=== PATIENT | female | born 1935 | race Caucasian/White ===

== ENCOUNTER 2016-12-22 07:21 | Inpatient (IN) | payer MEDICARE ==
[2016-12-22 08:43] LABS: Hematocrit 35.6 % (30.3-42.9); Hemoglobin 11.6 gm/dl (10.1-14.3); Mean Corpuscular HGB Conc 33 % (30-34); Mean Corpuscular Hemoglobin 30 pg (28-32); Mean Corpuscular Volume 93 fl (79-97); Platelet Count 232 K/mm3 (140-440); Red Blood Count 3.84 M/mm3 (3.65-5.03); Red Cell Distribution Width 14.1 % (13.2-15.2); White Blood Count 6.7 K/mm3 (4.5-11.0)
[2016-12-22 08:52] LABS: Anion Gap 16 mmol/L; Blood Urea Nitrogen 27 mg/dL (7-17); Calcium 8.8 mg/dL (8.4-10.2); Carbon Dioxide 28 mmol/L (22-30); Chloride 103.3 mmol/L (98-107); Glucose 86 mg/dL (65-100); Sodium 143 mmol/L (137-145)
[2016-12-22 08:54] LABS: Bilirubin,Urine NEG (Negative); Blood,Urine NEG (Negative); Ketones,Urine TR mg/dL (Negative); Leukocyte Esterase,Urine SM (Negative); Mucus,Urine 1+ /HPF; Nitrite,Urine NEG (Negative)
--- NOTE | 2016-12-22 09:48 | XRay Report ---
Single view chest: History altered mental status. Findings: Megaly. Trachea is midline. No consolidation, pneumothorax or pleural effusion. Impression: No acute cardiopulmonary findings.
[2016-12-22 10:53] LABS: Partial Thromboplastin Time 25.2 Sec. (24.2-36.6)
--- NOTE | 2016-12-22 10:58 | Cat Scan Report ---
CT scan of head without contrast: History: AMS. Findings: Ventricles are normal in size and midline in location. No evidence of acute ischemia, hemorrhage or mass. No extra-axial fluid collection. Mild to moderate volume loss. Normal sinuses. Impression: No acute intracranial abnormality. Mild cortical atrophy.
[2016-12-22 10:59] LABS: INR 1.06 (0.87-1.13)
[2016-12-22] MEDS ORDERED: NACL 0.9% 1000 ML 1,000 ML IV ONE (11:25)
[2016-12-22] MEDS ORDERED: ROCEPHIN/NS 1 GM/50 ML 1 GM/50 ML BAG IV ONE (11:25)
[2016-12-22] MEDS ORDERED: KEPPRA 1,000 MG/NS 0.75% 100ML 1,000 MG/100 ML BAG IV ONE (11:47)
[2016-12-22 11:49] LABS: Basophils % (Manual) 0 % (0.0-1.8); Blastocytes % (Manual) 0 %; Eosinophils % (Manual) 0 % (0.0-4.3)
[2016-12-22 11:50] LABS: Diff Status Complete; Poikilocytosis Few
--- NOTE | 2016-12-22 12:01 | Emergency Department Report ---
ED Altered Mental Status HPI - General Chief Complaint: Altered Mental Status Stated Complaint: AMS Time Seen by Provider: 12/22/16 09:41 Source: EMS Mode of arrival: Stretcher Limitations: Altered Mental Status - History of Present Illness Initial Comments: 81 year old female past medical history dementia, PE, sz presents from assisted living center with altered mental status. Per EMS pt has been more confused and not speaking much which is changed from her baseline. Patient is oriented to self only. Patient does not speak when questioned and follows very basic commands. She does not appear to be in distress. Kit Planner at the bedside states patient has been eating and drinking. Noticed decrease in activity and speaking today. Temperature 101 at home. Nor reports of cough or cold symptoms - Related Data Home Medications Medication Instructions Recorded Confirmed Last Taken Acetaminophen 500 mg PO PRN PRN 12/22/16 12/22/16 Unknown Aspirin 81 mg PO QAM 12/22/16 12/22/16 1 Day Ago AtorvaSTATin 40 mg PO QHS 12/22/16 12/22/16 1 Day Ago Valproic Acid 250 mg PO BID 12/22/16 12/22/16 1 Day Ago levETIRAcetam 1,000 mg PO BID 12/22/16 12/22/16 1 Day Ago risperiDONE 1 mg PO BID 12/22/16 12/22/16 1 Day Ago traZODone 100 mg PO QHS 12/22/16 12/22/16 1 Day Ago Allergies Allergy/AdvReac Type Severity Reaction Status Date / Time No Known Allergies Allergy Unverified 12/22/16 07:46 ED Review of Systems ROS: Stated complaint: AMS Other details as noted in HPI Comment: Unobtainable due to pts medical conditions ED Past Medical Hx - Past Medical History Previous Medical History?: Yes Hx Pulmonary Embolism: Yes Hx Seizures: Yes Hx Dementia: Yes - Social History Smoking Status: Unknown if ever smoked - Medications Home Medications: Home Medications Medication Instructions Recorded Confirmed Last Taken Type Acetaminophen 500 mg PO PRN PRN 12/22/16 12/22/16 Unknown History Aspirin 81 mg PO QAM 12/22/16 12/22/16 1 Day Ago History AtorvaSTATin 40 mg PO QHS 12/22/16 12/22/16 1 Day Ago History Valproic Acid 250 mg PO BID 12/22/16 12/22/16 1 Day Ago History levETIRAcetam 1,000 mg PO BID 12/22/16 12/22/16 1 Day Ago History risperiDONE 1 mg PO BID 12/22/16 12/22/16 1 Day Ago History traZODone 100 mg PO QHS 12/22/16 12/22/16 1 Day Ago History ED Physical Exam - General Limitations: Altered Mental Status - Other Other exam information: General: No limitations, patient is alert in no acute distress Head exam: Atraumatic, normocephalic Eyes exam: Normal appearance, pupils equal and react to light ENT: Moist mucous membrane, normal oropharynx Neck exam: Normal inspection Respiratory exam: Clear to auscultation bilateral, no wheezes, rales, crackles Cardiovascular: Normal rate and rhythm, normal heart sounds Abdomen: Soft, nondistended, and nontender, with normal bowel sounds, no rebound, or guarding Extremity: Full range of motion normal inspection no deformity Back: Normal Inspection, full range of motion, no tenderness Neurologic: Alert, no facial droop, equal hand pocket assembler, equal foot dorsiflexion Psychiatric: normal affect, normal mood Skin: Warm, dry, intact ED Course Vital Signs 12/22/16 12/22/16 07:39 10:38 Temperature 98.7 F 98.6 F Pulse Rate 54 L 50 L Respiratory 16 14 Rate Blood Pressure 126/67 Blood Pressure 106/58 [Right] O2 Sat by Pulse 100 100 Oximetry - Reevaluation(s) Reevaluation #1: 12/22/16 12:01 pt state unchanged Reevaluation #2: 12/22/16 12:34 will repeat ekg to r/o artifact vs true aflutter. - Lab Data Result diagrams: 12/22/16 08:23 12/22/16 08:28 Lab Results 12/22/16 12/22/16 12/22/16 Range/Units 08:23 08:23 08:23 WBC 6.7 (4.5-11.0) K/mm3 RBC 3.84 (3.65-5.03) M/mm3 Hgb 11.6 (10.1-14.3) gm/dl Hct 35.6 (30.3-42.9) % MCV 93 (79-97) fl MCH 30 (28-32) pg MCHC 33 (30-34) % RDW 14.1 (13.2-15.2) % Plt Count 232 (140-440) K/mm3 [place] % (Auto) Security Services Specialist Add Manual Diff Complete Total Counted 100 Seg Neuts % (Manual) 71.0 H (40.0-70.0) % Band Neutrophils % 3.0 % Lymphocytes % (Manual) 14.0 (13.4-35.0) % Reactive Lymphs % (Man) 0 % Monocytes % (Manual) 12.0 H (0.0-7.3) % Eosinophils % (Manual) 0 (0.0-4.3) % Basophils % (Manual) 0 (0.0-1.8) % Metamyelocytes % 0 % Myelocytes % 0 % Promyelocytes % 0 % Blast Cells % 0 % Nucleated RBC % Not Reportable Seg Neutrophils # Man 4.8 (1.8-7.7) K/mm3 Band Neutrophils # 0.2 K/mm3 Lymphocytes # (Manual) 0.9 L (1.2-5.4) K/mm3 Abs React Lymphs (Man) 0.0 K/mm3 Monocytes # (Manual) 0.8 (0.0-0.8) K/mm3 Eosinophils # (Manual) 0.0 (0.0-0.4) K/mm3 Basophils # (Manual) 0.0 (0.0-0.1) K/mm3 Metamyelocytes # 0.0 K/mm3 Myelocytes # 0.0 K/mm3 Promyelocytes # 0.0 K/mm3 Blast Cells # 0.0 K/mm3 WBC Morphology Not Reportable Hypersegmented Neuts Not Reportable Hyposegmented Neuts Not Reportable Hypogranular Neuts Not Reportable Smudge Cells Not Reportable Toxic Granulation Not Reportable Toxic Vacuolation Not Reportable Dohle Bodies Not Reportable Pelger-Huet Anomaly Not Reportable Jude Rods Not Reportable Platelet Estimate Not Reportable Clumped Platelets Not Reportable Plt Clumps, EDTA Not Reportable Large Platelets Not Reportable Giant Platelets Not Reportable Platelet Satelliting Not Reportable Plt Morphology Comment Not Reportable RBC Morphology Not Reportable Dimorphic RBCs Not Reportable Polychromasia Not Reportable Hypochromasia Not Reportable Poikilocytosis Few Anisocytosis Not Reportable Microcytosis Not Reportable Macrocytosis Not Reportable Spherocytes Not Reportable Pappenheimer Bodies Not Reportable Sickle Cells Not Reportable Target Cells Not Reportable Tear Drop Cells Not Reportable Ovalocytes Not Reportable Helmet Cells Not Reportable [place] Bodies Not Reportable Mullin Rings Not Reportable [place] Cells Not Reportable Bite Cells Not Reportable Crenated Cell Not Reportable Elliptocytes Not Reportable Acanthocytes (Spur) Not Reportable Rouleaux Not Reportable Hemoglobin C Crystals Not Reportable Schistocytes Not Reportable Malaria parasites Not Reportable Gold Bodies Not Reportable Hem Pathologist Commnt No PT (12.2-14.9) Sec. INR (0.87-1.13) APTT (24.2-36.6) Sec. Sodium (137-145) mmol/L Potassium (3.6-5.0) mmol/L Chloride (98-107) mmol/L Carbon Dioxide (22-30) mmol/L Anion Gap mmol/L BUN (7-17) mg/dL Creatinine (0.7-1.2) mg/dL Estimated GFR ml/min BUN/Creatinine Ratio % Glucose (65-100) mg/dL Lactic Acid (0.7-2.0) mmol/L Calcium (8.4-10.2) mg/dL Troponin T < 0.010 (0.00-0.029) ng/mL TSH (0.270-4.200) mlU/mL Free T4 (0.76-1.46) ng/dL Urine Color Yellow (Yellow) Urine Turbidity Clear (Clear) Urine pH 6.0 (5.0-7.0) Ur Specific [place] 1.031 H (1.003-1.030) Urine Protein 100 mg/dl (Negative) mg/dL Urine Glucose (UA) Neg (Negative) mg/dL Urine Ketones Tr (Negative) mg/dL Urine Blood Neg (Negative) Urine Nitrite Neg (Negative) Urine Bilirubin Neg (Negative) Urine Urobilinogen 4.0 (<2.0) mg/dL Ur Leukocyte Esterase Sm (Negative) Urine WBC (Auto) 12.0 H (0.0-6.0) /HPF Urine RBC (Auto) 11.0 (0.0-6.0) /HPF U Epithel Cells (Auto) 1.0 (0-13.0) /HPF Hyaline Casts 1 /LPF Urine Mucus 1+ /HPF Urine Yeast (Budding) Few /HPF 12/22/16 12/22/16 12/22/16 Range/Units 08:28 08:28 10:25 WBC (4.5-11.0) K/mm3 RBC (3.65-5.03) M/mm3 Hgb (10.1-14.3) gm/dl Hct (30.3-42.9) % MCV (79-97) fl MCH (28-32) pg MCHC (30-34) % RDW (13.2-15.2) % Plt Count (140-440) K/mm3 [place] % (Auto) Add Manual Diff Total Counted Seg Neuts % (Manual) (40.0-70.0) % Band Neutrophils % % Lymphocytes % (Manual) (13.4-35.0) % Reactive Lymphs % (Man) % Monocytes % (Manual) (0.0-7.3) % Eosinophils % (Manual) (0.0-4.3) % Basophils % (Manual) (0.0-1.8) % Metamyelocytes % % Myelocytes % % Promyelocytes % % Blast Cells % % Nucleated RBC % Seg Neutrophils # Man (1.8-7.7) K/mm3 Band Neutrophils # K/mm3 Lymphocytes # (Manual) (1.2-5.4) K/mm3 Abs React Lymphs (Man) K/mm3 Monocytes # (Manual) (0.0-0.8) K/mm3 Eosinophils # (Manual) (0.0-0.4) K/mm3 Basophils # (Manual) (0.0-0.1) K/mm3 Metamyelocytes # K/mm3 Myelocytes # K/mm3 Promyelocytes # K/mm3 Blast Cells # K/mm3 WBC Morphology Hypersegmented Neuts Hyposegmented Neuts Hypogranular Neuts Smudge Cells Toxic Granulation Toxic Vacuolation Dohle Bodies Pelger-Huet Anomaly Jude Rods Platelet Estimate Clumped Platelets Plt Clumps, EDTA Large Platelets Giant Platelets Platelet Satelliting Plt Morphology Comment RBC Morphology Dimorphic RBCs Polychromasia Hypochromasia Poikilocytosis Anisocytosis Microcytosis Macrocytosis Spherocytes Pappenheimer Bodies Sickle Cells Target Cells Tear Drop Cells Ovalocytes Helmet Cells [place] Bodies Mullin Rings [place] Cells Bite Cells Crenated Cell Elliptocytes Acanthocytes (Spur) Rouleaux Hemoglobin C Crystals Schistocytes Malaria parasites Gold Bodies Hem Pathologist Commnt PT 13.7 (12.2-14.9) Sec. INR 1.06 (0.87-1.13) APTT 25.2 (24.2-36.6) Sec. Sodium 143 (137-145) mmol/L Potassium 4.0 (3.6-5.0) mmol/L Chloride 103.3 (98-107) mmol/L Carbon Dioxide 28 (22-30) mmol/L Anion Gap 16 mmol/L BUN 27 H (7-17) mg/dL Creatinine 0.6 L (0.7-1.2) mg/dL Estimated GFR > 60 ml/min BUN/Creatinine Ratio 45.00 % Glucose 86 (65-100) mg/dL Lactic Acid 1.60 (0.7-2.0) mmol/L Calcium 8.8 (8.4-10.2) mg/dL Troponin T (0.00-0.029) ng/mL TSH (0.270-4.200) mlU/mL Free T4 (0.76-1.46) ng/dL Urine Color (Yellow) Urine Turbidity (Clear) Urine pH (5.0-7.0) Ur Specific [place] (1.003-1.030) Urine Protein (Negative) mg/dL Urine Glucose (UA) (Negative) mg/dL Urine Ketones (Negative) mg/dL Urine Blood (Negative) Urine Nitrite (Negative) Urine Bilirubin (Negative) Urine Urobilinogen (<2.0) mg/dL Ur Leukocyte Esterase (Negative) Urine WBC (Auto) (0.0-6.0) /HPF Urine RBC (Auto) (0.0-6.0) /HPF U Epithel Cells (Auto) (0-13.0) /HPF Hyaline Casts /LPF Urine Mucus /HPF Urine Yeast (Budding) /HPF 12/22/16 Range/Units 10:25 WBC (4.5-11.0) K/mm3 RBC (3.65-5.03) M/mm3 Hgb (10.1-14.3) gm/dl Hct (30.3-42.9) % MCV (79-97) fl MCH (28-32) pg MCHC (30-34) % RDW (13.2-15.2) % Plt Count (140-440) K/mm3 [place] % (Auto) Add Manual Diff Total Counted Seg Neuts % (Manual) (40.0-70.0) % Band Neutrophils % % Lymphocytes % (Manual) (13.4-35.0) % Reactive Lymphs % (Man) % Monocytes % (Manual) (0.0-7.3) % Eosinophils % (Manual) (0.0-4.3) % Basophils % (Manual) (0.0-1.8) % Metamyelocytes % % Myelocytes % % Promyelocytes % % Blast Cells % % Nucleated RBC % Seg Neutrophils # Man (1.8-7.7) K/mm3 Band Neutrophils # K/mm3 Lymphocytes # (Manual) (1.2-5.4) K/mm3 Abs React Lymphs (Man) K/mm3 Monocytes # (Manual) (0.0-0.8) K/mm3 Eosinophils # (Manual) (0.0-0.4) K/mm3 Basophils # (Manual) (0.0-0.1) K/mm3 Metamyelocytes # K/mm3 Myelocytes # K/mm3 Promyelocytes # K/mm3 Blast Cells # K/mm3 WBC Morphology Hypersegmented Neuts Hyposegmented Neuts Hypogranular Neuts Smudge Cells Toxic Granulation Toxic Vacuolation Dohle Bodies Pelger-Huet Anomaly Jude Rods Platelet Estimate Clumped Platelets Plt Clumps, EDTA Large Platelets Giant Platelets Platelet Satelliting Plt Morphology Comment RBC Morphology Dimorphic RBCs Polychromasia Hypochromasia Poikilocytosis Anisocytosis Microcytosis Macrocytosis Spherocytes Pappenheimer Bodies Sickle Cells Target Cells Tear Drop Cells Ovalocytes Helmet Cells [place] Bodies Mullin Rings [place] Cells Bite Cells Crenated Cell Elliptocytes Acanthocytes (Spur) Rouleaux Hemoglobin C Crystals Schistocytes Malaria parasites Gold Bodies Hem Pathologist Commnt PT (12.2-14.9) Sec. INR (0.87-1.13) APTT (24.2-36.6) Sec. Sodium (137-145) mmol/L Potassium (3.6-5.0) mmol/L Chloride (98-107) mmol/L Carbon Dioxide (22-30) mmol/L Anion Gap mmol/L BUN (7-17) mg/dL Creatinine (0.7-1.2) mg/dL Estimated GFR ml/min BUN/Creatinine Ratio % Glucose (65-100) mg/dL Lactic Acid (0.7-2.0) mmol/L Calcium (8.4-10.2) mg/dL Troponin T (0.00-0.029) ng/mL TSH 2.260 (0.270-4.200) mlU/mL Free T4 0.88 (0.76-1.46) ng/dL Urine Color (Yellow) Urine Turbidity (Clear) Urine pH (5.0-7.0) Ur Specific [place] (1.003-1.030) Urine Protein (Negative) mg/dL Urine Glucose (UA) (Negative) mg/dL Urine Ketones (Negative) mg/dL Urine Blood (Negative) Urine Nitrite (Negative) Urine Bilirubin (Negative) Urine Urobilinogen (<2.0) mg/dL Ur Leukocyte Esterase (Negative) Urine WBC (Auto) (0.0-6.0) /HPF Urine RBC (Auto) (0.0-6.0) /HPF U Epithel Cells (Auto) (0-13.0) /HPF Hyaline Casts /LPF Urine Mucus /HPF Urine Yeast (Budding) /HPF - EKG Data -: EKG Interpreted by Me (aflutter rate 49, no stemi) When compared to previous EKG there are: previous EKG unavailable 12/22/16 13:14 Repeat EKG shows sinus bradycardia rate 44. Previous waves on ekg likely artifact due to tremor - Radiology Data Radiology results: report reviewed (ct head: naf) cxr: naf - Medical Decision Making Plans admit patient to the hospital for increased confusion possibly due to UTI versus mild dehydration. Patient given Rocephin, normal saline initiated, and Keppra in the ED - Differential Diagnosis uti, delerium, dehydration, cva Critical Care Time: No Critical care attestation.: If time is entered above; I have spent that time in minutes in the direct care of this critically ill patient, excluding procedure time. ED Disposition Clinical Impression: Dementia, Mental status, decreased, UTI (urinary tract infection), Dehydration , Bradycardia, Seizure disorder Disposition: OP ADMIT IP TO THIS HOSP Is pt being admited?: Yes Condition: Stable Time of Disposition: 12:33 (Dr Dunlap/hosp)
--- NOTE | 2016-12-22 14:33 | History and Physical Report ---
History of Present Illness Chief complaint: Confused, Not acting right History of present illness: 81 YO Female Resident of Assisted Living Facility with Dementia, Malnutrition, Seizure Diporder, PE presents to ED for evaluation. Pt unable to provide history , but history provided by niece who is present during exam and interview. As per niece, patient has been acting more confused and has decreased oral intake over the past month with worsening symptoms over the past week. Pt found to have temperature of 101.0 today. No reports of chills, CP, Palpitations, NVD, Syncope, Falls,Trauma, BRBPR, Vertigo, Witnessed seizures, or recent ill contacts. EMS notified,and patient found to be confused, and nonambulatory. Pt transported to [facility]. Pt seen and evaluated in ED and found to be encephalopathic but is able to protect her airway. Past History Past Medical History: pulmonary embolism, seizures, other (Dementia,Malnutrition ) Past Surgical History: No surgical history Social history: single. denies: smoking, alcohol abuse, prescription drug abuse Family history: hypertension Medications and Allergies Allergies Allergy/AdvReac Type Severity Reaction Status Date / Time No Known Allergies Allergy Unverified 12/22/16 07:46 Home Medications Medication Instructions Recorded Confirmed Last Taken Type Acetaminophen 500 mg PO PRN PRN 12/22/16 12/22/16 Unknown History Aspirin 81 mg PO QAM 12/22/16 12/22/16 1 Day Ago History AtorvaSTATin 40 mg PO QHS 12/22/16 12/22/16 1 Day Ago History Valproic Acid 250 mg PO BID 12/22/16 12/22/16 1 Day Ago History levETIRAcetam 1,000 mg PO BID 12/22/16 12/22/16 1 Day Ago History risperiDONE 1 mg PO BID 12/22/16 12/22/16 1 Day Ago History traZODone 100 mg PO QHS 12/22/16 12/22/16 1 Day Ago History Active Meds: Active Medications Sodium Chloride (Nacl 0.9% 1000 Ml) 1,000 mls @ 150 mls/hr IV ONCE ONE Stop: 12/22/16 18:04 Last Admin: 12/22/16 11:56 Dose: 150 mls/hr Review of Systems ROS unobtainable: due to mental status Exam - Constitutional Vitals: Temp Pulse Resp BP Pulse Ox 97.8 F 46 L 14 119/54 100 12/22/16 13:24 12/22/16 13:24 12/22/16 13:24 12/22/16 13:24 12/22/16 13:24 General appearance: Present: mild distress, cachectic - EENT Eyes: Present: PERRL ENT: hearing intact, clear oral mucosa - Neck Neck: Present: supple, normal ROM - Respiratory Respiratory effort: normal Respiratory: bilateral: diminished - Extremities Extremities: pulses symmetrical, No edema Peripheral Pulses: within normal limits - Abdominal General gastrointestinal: Present: soft, non-tender, non-distended, normal bowel sounds Female genitourinary: Present: normal - Integumentary Integumentary: Present: clear, dry, clammy, decreased turgor - Musculoskeletal Musculoskeletal: generalized weakness - Psychiatric Psychiatric: no intact judgment & insight, no memory intact - Neurologic Neurologic: CNII-XII intact, moves all extremities, no gait normal Results - Labs CBC & Chem 7: 12/22/16 08:23 12/22/16 08:28 Labs: Abnormal lab results 12/22/16 12/22/16 12/22/16 Range/Units 08:23 08:23 08:28 Seg Neuts % (Manual) 71.0 H (40.0-70.0) % Monocytes % (Manual) 12.0 H (0.0-7.3) % Lymphocytes # (Manual) 0.9 L (1.2-5.4) K/mm3 BUN 27 H (7-17) mg/dL Creatinine 0.6 L (0.7-1.2) mg/dL Ur Specific [place] 1.031 H (1.003-1.030) Urine WBC (Auto) 12.0 H (0.0-6.0) /HPF Assessment and Plan - Patient Problems (1) UTI (urinary tract infection) Current Visit: Yes Status: Acute Qualifiers: Urinary tract infection type: U Hematuria presence: H Indwelling urinary catheter type: I Encounter type: E Plan to address problem: IV abx, IVF, supportive care, monitor uop q shift (2) Encephalopathy acute Current Visit: Yes Status: Acute Plan to address problem: Toxic Encephalopathy: IVF resuscitation, monitor uop q shift, treat UTI, (3) Dementia Current Visit: Yes Status: Chronic Qualifiers: Dementia type: D Alzheimer's disease onset: A Dementia behavioral disturbance: D Plan to address problem: Bed alarm, fall precautions, aspiration precautions, (4) Seizure disorder Current Visit: Yes Status: Acute Plan to address problem: Resume home medication, Keppra level, Depakote level (5) Severe malnutrition Current Visit: Yes Status: Acute Plan to address problem: encourage oral intake, with 100% assistance only, aspiration precautions, (6) DVT prophylaxis Current Visit: Yes Status: Acute
[2016-12-22] MEDS ORDERED: PROVENTIL IH PRN (14:35)
[2016-12-22] MEDS ORDERED: DULCOLAX PR PRN (14:35)
[2016-12-22] MEDS ORDERED: TYLENOL PO PRN (14:35)
[2016-12-22] MEDS ORDERED: ZOFRAN IV PRN (14:35)
[2016-12-22] MEDS ORDERED: MILK OF MAGNESIA PO PRN (14:35)
[2016-12-22] MEDS ORDERED: ACETAMINOPHEN 500 MG PO PRN (14:38)
--- NOTE | 2016-12-22 14:54 | Admit Criteria Form ---
Admission Criteria Documentation: URINARY COMPLICATIONS Clinical Indications for Inpatient Care (Place 'X' for any and all applicable criteria): Ongoing inpatient care may be needed for Urinary complications with 1 or more of the following: [ ]I. Reduced urine output (eg, despite adequate hydration) [ ]II. Renal failure. (Also use Renal Failure: Common Complications and Conditions as appropriate) [ ]III. Urinary retention requiring drainage or surgery(19)(20)(21)(33)(34) [ ]IV. Postobstructive diuresis requiring close monitoring of urine output and intravenous compensation for excessive fluid losses(35) [X ]V. Urinary tract infection requiring inpatient care as indicated by ANY ONE of the following(8)(19)(20): [ ]a) Hemodynamic instability [ ]b) Severe symptoms (eg, high fever, severe pain) [ ]c) Vomiting or dehydration requiring ongoing inpatient care [X ]d) IV antibiotic needs that cannot be managed at lower level of care [ ]e) Obstruction of collecting system by stone or tumor Extended stay beyond goal length of stay for primary condition may be needed until ALL of the following are present(3)(4)(5)(8): [ ]a) Renal function (creatinine) at baseline, or daily decreases in creatinine consistent with renal function return [ ]b) Voiding adequately or with urinary catheter or percutaneous suprapubic tube and management regimen in place that is performable at lower level of care. [ ]c) Urine output adequate [ ]d) Fever absent or resolving [ ]e) Infection absent or treatable at next level of care The original [facility] [employer] content created by [employer] has been revised. The portions of the content which have been revised are identified through the use of italic text or in bold, and [facility] has neither reviewed nor approved the modified material. All other unmodified content is copyright [facility] [email or web address] Please see references footnoted in the original [facility] [employer] edition 2017 Admission Criteria Met: Yes
[2016-12-22] MEDS ORDERED: NACL 0.45% 1000 ML 1,000 ML IV SCH (15:00)
[2016-12-22] MEDS ORDERED: NON-FORMULARY (Levetiracetam 1,000 MG) PO SCH (22:00)
[2016-12-22] MEDS ORDERED: NON-FORMULARY (Atorvastatin 40 MG) PO SCH (22:00)
[2016-12-22] MEDS ORDERED: VALPROIC ACID 250 MG PO SCH (22:00)
[2016-12-22] MEDS ORDERED: RISPERIDONE 1 MG PO SCH (22:00)
[2016-12-22] MEDS ORDERED: NON-FORMULARY (Trazodone 100 MG) PO SCH (22:00)
[2016-12-22] MEDS: KEPPRA PO SCH (22:37)
[2016-12-22] MEDS: DESYREL PO SCH (22:42)
[2016-12-23] MEDS: RisperDAL PO SCH ×3 (03:53→23:09)
[2016-12-23] MEDS: HALFPRIN EC PO SCH (09:32)
[2016-12-23] MEDS: KEPPRA PO SCH ×2 (09:33→23:09)
[2016-12-23] MEDS: ROCEPHIN/NS 2 GM/100 ML 2 GM/100 ML BAG IV SCH (09:35)
[2016-12-23] MEDS ORDERED: NON-FORMULARY (Aspirin 81 MG) PO SCH (10:00)
--- NOTE | 2016-12-23 10:39 | Consultation ---
History of Present Illness Consult date: 12/23/16 Requesting physician: JODY VALDES Consult reason: bradycardia History of present illness: The pt is a 81 YO NHR female with a past medical history significant for advanced dementia, CMP, HLP, possible NSTEMI in 06/2016, PE, sinus bradycardia and seizure d/o. She is followed in our office by Dr. Munoz. Pt is a poor historian and thus HPI is obtained per pt's niece at bedside. Pt presented with c/o AMS and lethargy x 1 week TAX ATTORNEY. Following arrival, pt was diagnosed with UTI and mild dehydration. Also, pt was found to have sinus bradycardia, HR as low as 33bpm, and thus cardiology has been consulted. On evaluation, pt denies any complaints and is hemodynamically stable. Of note, pt is known to have asymptomatic sinus bradycardia for the past several years per our office records. She is not on any AV harshad blocking agents at home. Echo done 06/2016 showed EF 35-40%, mild AV insufficiency, mild TR, mild enlarged RV, wall motion abnormalities involving the anterior wall, apex and septum. Past History Past Medical History: hyperlipidemia, pulmonary embolism, seizures, other ( Dementia) Past Surgical History: No surgical history Social history: single. denies: smoking, alcohol abuse, prescription drug abuse Family history: hypertension Medications and Allergies Allergies Allergy/AdvReac Type Severity Reaction Status Date / Time No Known Allergies Allergy Unverified 12/22/16 07:46 Home Medications Medication Instructions Recorded Confirmed Last Taken Type Acetaminophen 500 mg PO PRN PRN 12/22/16 12/22/16 Unknown History Aspirin 81 mg PO QAM 12/22/16 12/22/16 12/21/16 08:00 History 81 mg AtorvaSTATin 40 mg PO QHS 12/22/16 12/22/16 12/21/16 20:00 History 40 mg Valproic Acid 250 mg PO BID 12/22/16 12/22/16 12/21/16 17:00 History 250 mg levETIRAcetam 1,000 mg PO BID 12/22/16 12/22/16 12/21/16 20:00 History 1000 mg risperiDONE 1 mg PO BID 12/22/16 12/22/16 12/21/16 20:00 History 1 mg traZODone 100 mg PO QHS 12/22/16 12/22/16 12/21/16 20:00 History 100 mg Active Meds: Active Medications Acetaminophen (Tylenol) 650 mg PO Q4H PRN PRN Reason: Pain MILD(1-3)/Fever >100.5/SIMMONS Albuterol (Proventil) 2.5 mg IH Q4HRT PRN PRN Reason: Shortness Of Breath Aspirin (Halfprin Ec) 81 mg PO QDAY ON LICENSE OF [facility] Last Admin: 12/23/16 09:32 Dose: 81 mg Atorvastatin Calcium (Lipitor) 40 mg PO QHS ON LICENSE OF [facility] Last Admin: 12/22/16 22:37 Dose: 40 mg Bisacodyl (Dulcolax) 10 mg NE QDAY PRN PRN Reason: Constipation unrelieved by [facility] Sodium Chloride (Nacl 0.45% 1000 Ml) 1,000 mls @ 75 mls/hr IV DIRECT ON LICENSE OF [facility] Ceftriaxone Sodium (Rocephin/Ns 2 Gm/100 Ml) 2 gm in 100 mls @ 200 mls/hr IV Q24HR CAROL PRN Reason: Protocol Last Admin: 12/23/16 09:35 Dose: 200 mls/hr Levetiracetam (Keppra) 1,000 mg PO BID ON LICENSE OF [facility] Last Admin: 12/23/16 09:33 Dose: 1,000 mg Magnesium Hydroxide (Milk Of Magnesia) 30 ml PO Q4H PRN PRN Reason: Constipation Ondansetron HCl (Zofran) 4 mg IV Q8H PRN PRN Reason: N/V unrelieved by Reglan Risperidone (Risperdal) 1 mg PO BID ON LICENSE OF [facility] Last Admin: 12/23/16 09:33 Dose: 1 mg Trazodone HCl (Desyrel) 100 mg PO QHS ON LICENSE OF [facility] Last Admin: 12/22/16 22:42 Dose: 100 mg Valproic Acid (Depakene) 250 mg PO BID ON LICENSE OF [facility] Last Admin: 12/23/16 09:31 Dose: 250 mg Review of Systems Constitutional: lethargy, other (AMS), no weight loss, no weight gain, no fever , no chills, no sweats Ears, nose, mouth and throat: no ear pain, no nose pain, no sinus pressure, no sinus pain Cardiovascular: no chest pain, no orthopnea, no palpitations, no rapid/ irregular heart beat, no edema, no syncope, no lightheadedness, no shortness of breath Respiratory: no cough, no shortness of breath, no dyspnea on exertion, no congestion, no pain Gastrointestinal: no abdominal pain, no nausea, no vomiting, no diarrhea, no constipation, no change in bowel habits Genitourinary Female: no pelvic pain, no flank pain, no dysuria, no urinary frequency, no urgency Musculoskeletal: no neck stiffness, no neck pain Integumentary: no rash, no pruritis, no redness, no sores, no wounds Neurological: no weakness, no parathesias, no numbness, no tingling, no seizures , no syncope Psychiatric: disorientation, no anxiety Endocrine: no cold intolerance, no heat intolerance Hematologic/Lymphatic: no easy bruising, no easy bleeding, no lymphadenopathy Allergic/Immunologic: no urticaria, no wheezing Physical Examination Vital Signs Temp Pulse Resp BP Pulse Ox 98.7 F 54 L 16 126/67 100 12/22/16 07:39 12/22/16 07:39 12/22/16 07:39 12/22/16 07:39 12/22/16 07:39 General appearance: no acute distress HEENT: Positive: PERRL, Normocephaly, Mucus Membranes Moist Neck: Positive: neck supple, trachea midline Cardiac: Positive: S1/S2, Systolic Murmur, Bradycardia Lungs: Positive: Normal Exam, clear to auscultation Neuro: Positive: Grossly Intact, Cranial Nerve 2-12 Intact Abdomen: Positive: Unremarkable, Soft, Active Bowel Sounds. Negative: Tender Skin: Positive: Clear. Negative: Rash, Wound Musculoskeletal: No Fluid Collection, No Pain, Normal Range of Motion Extremities: Absent: edema Results 12/22/16 08:23 12/22/16 08:28 - Imaging and Cardiology Echo: report reviewed (06/2016 showed EF 35-40%, mild AV insufficiency, mild TR, mild enlarged RV, wall motion abnormalities involving the anterior wall, apex and septum. ) EKG: image reviewed Assessment and Plan Assessment: AMS - head CT with NAF. UTI / dehydration Asymptomatic chronic sinus bradycardia - thyroid panel WNL; BPs WNL. CMP - EF 35-40% on echo 06/2016 ? H/O NSTEMI in 06/2016 - Troponin currently negative for AMI x 1 set; ECG with no ischemic changes; pt currently declines chest pain. H/O seizure d/o H/O PE - coumadin discontinued in 06/2016 per [facility] records HLP Advanced dementia Plan: Currently stable cardiac status. No indication for repeat echo at this time given recent echo 06/2016. No indication for pacemaker as pt's SB is chronic and pt is asymptomatic and hemodynamically stable. Cont to hold all AV harshad blocking agents. Continue telemetry. Cont with conservative cardiac management given pt's age, advanced dementia and co-morbidities. The patient has been seen in conjunction with Dr. Gonzalez who agrees with the assessment and plan of care.
--- NOTE | 2016-12-23 15:06 | Progress Note ---
Assessment and Plan Assessment and plan: Patient is a 81-year-old woman with history of dementia, malnutrition, seizure disorder from [facility], first visit here presents with altered mental status. She was found to have UTI. -Acute encephalopathy: treat UTI -UTI: treated abx, follow urine culture -Suspect severe malnutrition: consult Absorption And Adsorption Engineer -Severe Bradycardia: consulted Cardiology and ordered echo -DVT prophylaxis: SCD and added subcutaneous heparin History Interval history: Patient was seen and examined. Follow-up on current diagnosis/altered mental status was still present. Overnight uneventful. Patient denies any chest pain , shortness breath, nausea/vomiting or severe headaches. Imaging, nursing note , chart, labs and old chart reviewed. Discussed with patient. Hospitalist Physical - Physical exam Narrative exam: GEN: WDWN, NAD, AWAKE, ALERT, ORIENTATED 1 HEENT: NCAT, EOMI, PERRL, OP Clear NECK: supple, no adenopathy, no thyromegaly, no JVD CVS/HEART: RRR, NORMAL S1S2, NO JVD, pulses present bilaterally CHEST/LUNGS: CTA B, Symmetrical chest expansion, good air entry bilaterally GI/Abdomen: soft, NTND, good bowel sounds, no guarding or rebound /Bladder: no suprapubic tenderness, no CVA or paraspinal tenderness EXT/Skin: no c/c/e, no significant edema or obvious rash MSK: FROM x 4 Neuro: CN 2-12 grossly intact, no new focal deficits Psych: calm - Constitutional Vitals: Temp Pulse Resp BP Pulse Ox 97.4 F L 48 L 18 110/60 99 12/23/16 09:55 12/23/16 10:00 12/23/16 09:55 12/23/16 09:55 12/23/16 09:55 General appearance: Present: no acute distress Results - Labs CBC & Chem 7: 12/22/16 08:23 12/22/16 08:28 Labs: Laboratory Last Values WBC 6.7 K/mm3 (4.5-11.0) 12/22/16 08:23 RBC 3.84 M/mm3 (3.65-5.03) 12/22/16 08:23 Hgb 11.6 gm/dl (10.1-14.3) 12/22/16 08:23 Hct 35.6 % (30.3-42.9) 12/22/16 08:23 MCV 93 fl (79-97) 12/22/16 08:23 MCH 30 pg (28-32) 12/22/16 08:23 MCHC 33 % (30-34) 12/22/16 08:23 RDW 14.1 % (13.2-15.2) 12/22/16 08:23 Plt Count 232 K/mm3 (140-440) 12/22/16 08:23 [place] % (Auto) Farm Demonstrator 12/22/16 08:23 Add Manual Diff Complete 12/22/16 08:23 Total Counted 100 12/22/16 08:23 Seg Neuts % (Manual) 71.0 % (40.0-70.0) H 12/22/16 08:23 Band Neutrophils % 3.0 % 12/22/16 08:23 Lymphocytes % (Manual) 14.0 % (13.4-35.0) 12/22/16 08:23 Reactive Lymphs % (Man) 0 % 12/22/16 08:23 Monocytes % (Manual) 12.0 % (0.0-7.3) H 12/22/16 08:23 Eosinophils % (Manual) 0 % (0.0-4.3) 12/22/16 08:23 Basophils % (Manual) 0 % (0.0-1.8) 12/22/16 08:23 Metamyelocytes % 0 % 12/22/16 08:23 Myelocytes % 0 % 12/22/16 08:23 Promyelocytes % 0 % 12/22/16 08:23 Blast Cells % 0 % 12/22/16 08:23 Nucleated RBC % Not Reportable 12/22/16 08:23 Seg Neutrophils # Man 4.8 K/mm3 (1.8-7.7) 12/22/16 08:23 Band Neutrophils # 0.2 K/mm3 12/22/16 08:23 Lymphocytes # (Manual) 0.9 K/mm3 (1.2-5.4) L 12/22/16 08:23 Abs React Lymphs (Man) 0.0 K/mm3 12/22/16 08:23 Monocytes # (Manual) 0.8 K/mm3 (0.0-0.8) 12/22/16 08:23 Eosinophils # (Manual) 0.0 K/mm3 (0.0-0.4) 12/22/16 08:23 Basophils # (Manual) 0.0 K/mm3 (0.0-0.1) 12/22/16 08:23 Metamyelocytes # 0.0 K/mm3 12/22/16 08:23 Myelocytes # 0.0 K/mm3 12/22/16 08:23 Promyelocytes # 0.0 K/mm3 12/22/16 08:23 Blast Cells # 0.0 K/mm3 12/22/16 08:23 WBC Morphology Not Reportable 12/22/16 08:23 Hypersegmented Neuts Not Reportable 12/22/16 08:23 Hyposegmented Neuts Not Reportable 12/22/16 08:23 Hypogranular Neuts Not Reportable 12/22/16 08:23 Smudge Cells Not Reportable 12/22/16 08:23 Toxic Granulation Not Reportable 12/22/16 08:23 Toxic Vacuolation Not Reportable 12/22/16 08:23 Dohle Bodies Not Reportable 12/22/16 08:23 Pelger-Huet Anomaly Not Reportable 12/22/16 08:23 Jude Rods Not Reportable 12/22/16 08:23 Platelet Estimate Not Reportable 12/22/16 08:23 Clumped Platelets Not Reportable 12/22/16 08:23 Plt Clumps, EDTA Not Reportable 12/22/16 08:23 Large Platelets Not Reportable 12/22/16 08:23 Giant Platelets Not Reportable 12/22/16 08:23 Platelet Satelliting Not Reportable 12/22/16 08:23 Plt Morphology Comment Not Reportable 12/22/16 08:23 RBC Morphology Not Reportable 12/22/16 08:23 Dimorphic RBCs Not Reportable 12/22/16 08:23 Polychromasia Not Reportable 12/22/16 08:23 Hypochromasia Not Reportable 12/22/16 08:23 Poikilocytosis Few 12/22/16 08:23 Anisocytosis Not Reportable 12/22/16 08:23 Microcytosis Not Reportable 12/22/16 08:23 Macrocytosis Not Reportable 12/22/16 08:23 Spherocytes Not Reportable 12/22/16 08:23 Pappenheimer Bodies Not Reportable 12/22/16 08:23 Sickle Cells Not Reportable 12/22/16 08:23 Target Cells Not Reportable 12/22/16 08:23 Tear Drop Cells Not Reportable 12/22/16 08:23 Ovalocytes Not Reportable 12/22/16 08:23 Helmet Cells Not Reportable 12/22/16 08:23 Zaragoza-[place] Bodies Not Reportable 12/22/16 08:23 [place] Rings Not Reportable 12/22/16 08:23 [place] Cells Not Reportable 12/22/16 08:23 Bite Cells Not Reportable 12/22/16 08:23 Crenated Cell Not Reportable 12/22/16 08:23 Elliptocytes Not Reportable 12/22/16 08:23 Acanthocytes (Spur) Not Reportable 12/22/16 08:23 Rouleaux Not Reportable 12/22/16 08:23 Hemoglobin C Crystals Not Reportable 12/22/16 08:23 Schistocytes Not Reportable 12/22/16 08:23 Malaria parasites Not Reportable 12/22/16 08:23 Gold Bodies Not Reportable 12/22/16 08:23 Hem Pathologist Commnt No 12/22/16 08:23 PT 13.7 Sec. (12.2-14.9) 12/22/16 10:25 INR 1.06 (0.87-1.13) 12/22/16 10:25 APTT 25.2 Sec. (24.2-36.6) 12/22/16 10:25 Sodium 143 mmol/L (137-145) 12/22/16 08:28 Potassium 4.0 mmol/L (3.6-5.0) 12/22/16 08:28 Chloride 103.3 mmol/L (98-107) 12/22/16 08:28 Carbon Dioxide 28 mmol/L (22-30) 12/22/16 08:28 Anion Gap 16 mmol/L 12/22/16 08:28 BUN 27 mg/dL (7-17) H 12/22/16 08:28 Creatinine 0.6 mg/dL (0.7-1.2) L 12/22/16 08:28 Estimated GFR > 60 ml/min 12/22/16 08:28 BUN/Creatinine Ratio 45.00 % 12/22/16 08:28 Glucose 86 mg/dL (65-100) 12/22/16 08:28 Lactic Acid 1.60 mmol/L (0.7-2.0) 12/22/16 08:28 Calcium 8.8 mg/dL (8.4-10.2) 12/22/16 08:28 Troponin T < 0.010 ng/mL (0.00-0.029) 12/22/16 08:23 TSH 2.260 mlU/mL (0.270-4.200) 12/22/16 10:25 Free T4 0.88 ng/dL (0.76-1.46) 12/22/16 10:25 Urine Color Yellow (Yellow) 12/22/16 08:23 Urine Turbidity Clear (Clear) 12/22/16 08:23 Urine pH 6.0 (5.0-7.0) 12/22/16 08:23 Ur Specific [place] 1.031 (1.003-1.030) H 12/22/16 08:23 Urine Protein 100 mg/dl mg/dL (Negative) 12/22/16 08:23 Urine Glucose (UA) Neg mg/dL (Negative) 12/22/16 08:23 Urine Ketones Tr mg/dL (Negative) 12/22/16 08:23 Urine Blood Neg (Negative) 12/22/16 08:23 Urine Nitrite Neg (Negative) 12/22/16 08:23 Urine Bilirubin Neg (Negative) 12/22/16 08:23 Urine Urobilinogen 4.0 mg/dL (<2.0) 12/22/16 08:23 Ur Leukocyte Esterase Sm (Negative) 12/22/16 08:23 Urine WBC (Auto) 12.0 /HPF (0.0-6.0) H 12/22/16 08:23 Urine RBC (Auto) 11.0 /HPF (0.0-6.0) 12/22/16 08:23 U Epithel Cells (Auto) 1.0 /HPF (0-13.0) 12/22/16 08:23 Hyaline Casts 1 /LPF 12/22/16 08:23 Urine Mucus 1+ /HPF 12/22/16 08:23 Urine Yeast (Budding) Few /HPF 12/22/16 08:23 Valproic Acid 24.4 ug/mL (50-100) L 12/22/16 14:47
[2016-12-23] MEDS: DESYREL PO SCH (23:09)
[2016-12-24 05:58] LABS: Hematocrit 32.3 % (30.3-42.9); Hemoglobin 10.9 gm/dl (10.1-14.3); Mean Corpuscular HGB Conc 34 % (30-34); Mean Corpuscular Hemoglobin 31 pg (28-32); Mean Corpuscular Volume 92 fl (79-97); Platelet Count 212 K/mm3 (140-440); Red Cell Distribution Width 13.8 % (13.2-15.2); White Blood Count 5.4 K/mm3 (4.5-11.0)
[2016-12-24 06:21] LABS: Anion Gap 15 mmol/L; Blood Urea Nitrogen 16 mg/dL (7-17); Calcium 8.4 mg/dL (8.4-10.2); Carbon Dioxide 26 mmol/L (22-30); Chloride 105.6 mmol/L (98-107); Glucose 91 mg/dL (65-100); Potassium 4.4 mmol/L (3.6-5.0); Sodium 142 mmol/L (137-145)
[2016-12-24] MEDS: HALFPRIN EC PO SCH (09:53)
[2016-12-24] MEDS: RisperDAL PO SCH ×2 (09:53→22:30)
[2016-12-24] MEDS: KEPPRA PO SCH ×2 (09:53→22:30)
[2016-12-24] MEDS: ROCEPHIN/NS 2 GM/100 ML 2 GM/100 ML BAG IV SCH (09:56)
--- NOTE | 2016-12-24 10:49 | Progress Note ---
Assessment and Plan Assessment: AMS - head CT with NAF. UTI / dehydration Asymptomatic chronic sinus bradycardia - thyroid panel WNL; BPs WNL. CMP - EF 35-40% on echo 06/2016 ? H/O NSTEMI in 06/2016 - Troponin currently negative for AMI x 1 set; ECG with no ischemic changes; pt currently declines chest pain. H/O seizure d/o H/O PE - coumadin discontinued in 06/2016 per [facility] records HLP Advanced dementia Plan: Currently stable cardiac status. No indication for repeat echo at this time given recent echo 06/2016. No indication for pacemaker as pt's SB is chronic and pt is asymptomatic and hemodynamically stable. Cont to hold all AV harshad blocking agents. Continue telemetry. Cont with conservative cardiac management given pt's age, advanced dementia and co-morbidities. Will see PRN. The patient has been seen in conjunction with Dr. Gonzalez who agrees with the assessment and plan of care. Subjective Date of service: 12/24/16 Principal diagnosis: SB; UTI Interval history: Pt resting comfortably, no complaints. Remains in SB, asymptomatic with BPs WNL. Objective Last Vital Signs Temp 97.6 F 12/23/16 20:03 Pulse 72 12/23/16 22:00 Resp 18 12/23/16 20:03 BP 97/59 12/23/16 20:03 Pulse Ox 98 12/23/16 22:00 - Physical Examination General: Appears Well HEENT: Positive: PERRL, Normocephaly, Mucus Membranes Moist Neck: Positive: neck supple, trachea midline Cardiac: Positive: S1/S2, Systolic Murmur, Bradycardia Lungs: Positive: clear to auscultation Neuro: Positive: Grossly Intact, Cranial Nerve 2-12 Intact Abdomen: Positive: Unremarkable, Soft, Active Bowel Sounds. Negative: Tender Skin: Positive: Clear. Negative: Rash, Wound Musculoskeletal: No Fluid Collection, No Pain, Normal Range of Motion Extremities: Absent: edema - Labs and Meds CBC 12/24/16 Range/Units 05:13 WBC 5.4 (4.5-11.0) K/mm3 RBC 3.50 L (3.65-5.03) M/mm3 Hgb 10.9 (10.1-14.3) gm/dl Hct 32.3 (30.3-42.9) % Plt Count 212 (140-440) K/mm3 Comprehensive Metabolic Panel 12/24/16 Range/Units 05:13 Sodium 142 (137-145) mmol/L Potassium 4.4 (3.6-5.0) mmol/L Chloride 105.6 (98-107) mmol/L Carbon Dioxide 26 (22-30) mmol/L BUN 16 (7-17) mg/dL Creatinine 0.5 L (0.7-1.2) mg/dL Glucose 91 (65-100) mg/dL Calcium 8.4 (8.4-10.2) mg/dL - Imaging and Cardiology EKG: image reviewed Echo: report reviewed (06/2016 showed EF 35-40%, mild AV insufficiency, mild TR, mild enlarged RV, wall motion abnormalities involving the anterior wall, apex and septum. )
--- NOTE | 2016-12-24 12:23 | Progress Note ---
Assessment and Plan Assessment and plan: Patient is a 81-year-old woman with history of dementia, acute [place], malnutrition , seizure disorder from [facility], first visit here presents with altered mental status. She was found to have UTI. -Acute encephalopathy: treat UTI -UTI: treated abx, follow urine culture=> normal skin pedro pablo -Suspect severe malnutrition: consult Safety Analyst -Severe Bradycardia: Cardiology is following -DVT prophylaxis: SCD and added subcutaneous heparin -Seizure disorder on Keppra and valproic acid, levels low -New-onset tremors and cogwheel rigidity, parkinsonism versus medication induced versus other 12/24/2016: Discussed with Simin james, stated power of county attorney of patient was hospitalized at [place] and started on valproic acid and she developed a tremor with worsening confusion, her neurologist Dr. Cash (whom i tried to reach via google search-neice did not know number), who patient saw before patient was hospitalized and there was no Parkinson at that time. This may be due to valproic acid, she's been on it for a couple months we'll wean off reduce the dose by half a consult neurology Disposition: Continue inpatient care, family/Simin declining SNF placement because after 20 days they will be responsible for the bill/stay at 100% and cost is over 100 hours per day which is too expensive per family History Interval history: Patient was seen and examined. Follow-up on current diagnosis/altered mental status, still present. Overnight uneventful. Patient denies any chest pain, shortness breath, nausea/vomiting or severe headaches. Imaging, nursing note, chart, labs and old chart reviewed. Discussed with patient. Hospitalist Physical - Physical exam Narrative exam: GEN: WDWN, NAD, AWAKE, ALERT, ORIENTATED 1 HEENT: NCAT, EOMI, PERRL, OP Clear NECK: supple, no adenopathy, no thyromegaly, no JVD CVS/HEART: RRR, NORMAL S1S2, NO JVD, pulses present bilaterally CHEST/LUNGS: CTA B, Symmetrical chest expansion, good air entry bilaterally GI/Abdomen: soft, NTND, good bowel sounds, no guarding or rebound /Bladder: no suprapubic tenderness, no CVA or paraspinal tenderness EXT/Skin: no c/c/e, no significant edema or obvious rash MSK: FROM x 4 Neuro: CN 2-12 grossly intact, no new focal deficits Psych: calm - Constitutional Vitals: Temp Pulse Resp BP Pulse Ox 97.5 F L 50 L 16 114/54 100 12/24/16 10:32 12/24/16 10:32 12/24/16 10:32 12/24/16 10:32 12/24/16 10:32 General appearance: Present: no acute distress Results - Labs CBC & Chem 7: 12/24/16 05:13 12/24/16 05:13 Labs: Laboratory Last Values WBC 5.4 K/mm3 (4.5-11.0) 12/24/16 05:13 RBC 3.50 M/mm3 (3.65-5.03) L 12/24/16 05:13 Hgb 10.9 gm/dl (10.1-14.3) 12/24/16 05:13 Hct 32.3 % (30.3-42.9) 12/24/16 05:13 MCV 92 fl (79-97) 12/24/16 05:13 MCH 31 pg (28-32) 12/24/16 05:13 MCHC 34 % (30-34) 12/24/16 05:13 RDW 13.8 % (13.2-15.2) 12/24/16 05:13 Plt Count 212 K/mm3 (140-440) 12/24/16 05:13 [place] % (Auto) Talent Program Manager 12/22/16 08:23 Add Manual Diff Complete 12/22/16 08:23 Total Counted 100 12/22/16 08:23 Seg Neuts % (Manual) 71.0 % (40.0-70.0) H 12/22/16 08:23 Band Neutrophils % 3.0 % 12/22/16 08:23 Lymphocytes % (Manual) 14.0 % (13.4-35.0) 12/22/16 08:23 Reactive Lymphs % (Man) 0 % 12/22/16 08:23 Monocytes % (Manual) 12.0 % (0.0-7.3) H 12/22/16 08:23 Eosinophils % (Manual) 0 % (0.0-4.3) 12/22/16 08:23 Basophils % (Manual) 0 % (0.0-1.8) 12/22/16 08:23 Metamyelocytes % 0 % 12/22/16 08:23 Myelocytes % 0 % 12/22/16 08:23 Promyelocytes % 0 % 12/22/16 08:23 Blast Cells % 0 % 12/22/16 08:23 Nucleated RBC % Not Reportable 12/22/16 08:23 Seg Neutrophils # Man 4.8 K/mm3 (1.8-7.7) 12/22/16 08:23 Band Neutrophils # 0.2 K/mm3 12/22/16 08:23 Lymphocytes # (Manual) 0.9 K/mm3 (1.2-5.4) L 12/22/16 08:23 Abs React Lymphs (Man) 0.0 K/mm3 12/22/16 08:23 Monocytes # (Manual) 0.8 K/mm3 (0.0-0.8) 12/22/16 08:23 Eosinophils # (Manual) 0.0 K/mm3 (0.0-0.4) 12/22/16 08:23 Basophils # (Manual) 0.0 K/mm3 (0.0-0.1) 12/22/16 08:23 Metamyelocytes # 0.0 K/mm3 12/22/16 08:23 Myelocytes # 0.0 K/mm3 12/22/16 08:23 Promyelocytes # 0.0 K/mm3 12/22/16 08:23 Blast Cells # 0.0 K/mm3 12/22/16 08:23 WBC Morphology Not Reportable 12/22/16 08:23 Hypersegmented Neuts Not Reportable 12/22/16 08:23 Hyposegmented Neuts Not Reportable 12/22/16 08:23 Hypogranular Neuts Not Reportable 12/22/16 08:23 Smudge Cells Not Reportable 12/22/16 08:23 Toxic Granulation Not Reportable 12/22/16 08:23 Toxic Vacuolation Not Reportable 12/22/16 08:23 Dohle Bodies Not Reportable 12/22/16 08:23 Pelger-Huet Anomaly Not Reportable 12/22/16 08:23 Jude Rods Not Reportable 12/22/16 08:23 Platelet Estimate Not Reportable 12/22/16 08:23 Clumped Platelets Not Reportable 12/22/16 08:23 Plt Clumps, EDTA Not Reportable 12/22/16 08:23 Large Platelets Not Reportable 12/22/16 08:23 Giant Platelets Not Reportable 12/22/16 08:23 Platelet Satelliting Not Reportable 12/22/16 08:23 Plt Morphology Comment Not Reportable 12/22/16 08:23 RBC Morphology Not Reportable 12/22/16 08:23 Dimorphic RBCs Not Reportable 12/22/16 08:23 Polychromasia Not Reportable 12/22/16 08:23 Hypochromasia Not Reportable 12/22/16 08:23 Poikilocytosis Few 12/22/16 08:23 Anisocytosis Not Reportable 12/22/16 08:23 Microcytosis Not Reportable 12/22/16 08:23 Macrocytosis Not Reportable 12/22/16 08:23 Spherocytes Not Reportable 12/22/16 08:23 Pappenheimer Bodies Not Reportable 12/22/16 08:23 Sickle Cells Not Reportable 12/22/16 08:23 Target Cells Not Reportable 12/22/16 08:23 Tear Drop Cells Not Reportable 12/22/16 08:23 Ovalocytes Not Reportable 12/22/16 08:23 Helmet Cells Not Reportable 12/22/16 08:23 Zaragoza-[place] Bodies Not Reportable 12/22/16 08:23 [place] Rings Not Reportable 12/22/16 08:23 [place] Cells Not Reportable 12/22/16 08:23 Bite Cells Not Reportable 12/22/16 08:23 Crenated Cell Not Reportable 12/22/16 08:23 Elliptocytes Not Reportable 12/22/16 08:23 Acanthocytes (Spur) Not Reportable 12/22/16 08:23 Rouleaux Not Reportable 12/22/16 08:23 Hemoglobin C Crystals Not Reportable 12/22/16 08:23 Schistocytes Not Reportable 12/22/16 08:23 Malaria parasites Not Reportable 12/22/16 08:23 Gold Bodies Not Reportable 12/22/16 08:23 Hem Pathologist Commnt No 12/22/16 08:23 PT 13.7 Sec. (12.2-14.9) 12/22/16 10:25 INR 1.06 (0.87-1.13) 12/22/16 10:25 APTT 25.2 Sec. (24.2-36.6) 12/22/16 10:25 Sodium 142 mmol/L (137-145) 12/24/16 05:13 Potassium 4.4 mmol/L (3.6-5.0) 12/24/16 05:13 Chloride 105.6 mmol/L (98-107) 12/24/16 05:13 Carbon Dioxide 26 mmol/L (22-30) 12/24/16 05:13 Anion Gap 15 mmol/L 12/24/16 05:13 BUN 16 mg/dL (7-17) 12/24/16 05:13 Creatinine 0.5 mg/dL (0.7-1.2) L 12/24/16 05:13 Estimated GFR > 60 ml/min 12/24/16 05:13 BUN/Creatinine Ratio 32.00 % 12/24/16 05:13 Glucose 91 mg/dL (65-100) 12/24/16 05:13 Lactic Acid 1.60 mmol/L (0.7-2.0) 12/22/16 08:28 Calcium 8.4 mg/dL (8.4-10.2) 12/24/16 05:13 Troponin T < 0.010 ng/mL (0.00-0.029) 12/22/16 08:23 TSH 2.260 mlU/mL (0.270-4.200) 12/22/16 10:25 Free T4 0.88 ng/dL (0.76-1.46) 12/22/16 10:25 Urine Color Yellow (Yellow) 12/22/16 08:23 Urine Turbidity Clear (Clear) 12/22/16 08:23 Urine pH 6.0 (5.0-7.0) 12/22/16 08:23 Ur Specific [place] 1.031 (1.003-1.030) H 12/22/16 08:23 Urine Protein 100 mg/dl mg/dL (Negative) 12/22/16 08:23 Urine Glucose (UA) Neg mg/dL (Negative) 12/22/16 08:23 Urine Ketones Tr mg/dL (Negative) 12/22/16 08:23 Urine Blood Neg (Negative) 12/22/16 08:23 Urine Nitrite Neg (Negative) 12/22/16 08:23 Urine Bilirubin Neg (Negative) 12/22/16 08:23 Urine Urobilinogen 4.0 mg/dL (<2.0) 12/22/16 08:23 Ur Leukocyte Esterase Sm (Negative) 12/22/16 08:23 Urine WBC (Auto) 12.0 /HPF (0.0-6.0) H 12/22/16 08:23 Urine RBC (Auto) 11.0 /HPF (0.0-6.0) 12/22/16 08:23 U Epithel Cells (Auto) 1.0 /HPF (0-13.0) 12/22/16 08:23 Hyaline Casts 1 /LPF 12/22/16 08:23 Urine Mucus 1+ /HPF 12/22/16 08:23 Urine Yeast (Budding) Few /HPF 12/22/16 08:23 Valproic Acid 24.4 ug/mL (50-100) L 12/22/16 14:47
[2016-12-24] MEDS: HEPARIN SUB-Q SCH (17:27)
[2016-12-24] MEDS: DESYREL PO SCH (22:30)
[2016-12-25] MEDS: HALFPRIN EC PO SCH (09:46)
[2016-12-25] MEDS: RisperDAL PO SCH (09:46)
[2016-12-25] MEDS: KEPPRA PO SCH (09:47)
[2016-12-25] MEDS: HEPARIN SUB-Q SCH (09:49)
[2016-12-25] MEDS: ROCEPHIN/NS 2 GM/100 ML 2 GM/100 ML BAG IV SCH (09:52)
--- NOTE | 2016-12-25 12:37 | Query-Altered Level of Consc. ---
Tete Zamora___Wise Date:___12/25/2016 Nain/CDS: Zamzam Phone#: [phone] Exercise your independent professional judgment when responding to this query. Questions asked do not imply a particular answer is desired or expected. We greatly appreciate your clarification on this issue. Clinical Documentation States: 81 Year old female was admitted on 12/22/2016 for AMS. The Hospitalist Progress note on 12/24/2016 states "-Acute encephalopathy: treat UTI." Please provide an appropriate diagnosis clarifying the Etiology and Acuity of this clinical scenario: [x ] Metabolic Encephalopathy [ ] Toxic Encephalopathy [ ] Toxic - Metabolic Encephalopathy [ ] Septic Encephalopathy with Sepsis [ ] Septic Encephalopathy without Sepsis [ ] Acute Hepatic Encephalopathy [ ] Subacute Hepatic Encephalopathy [ ] Encephalopathy [ ] Other: [ ] Unable To Determine [ ]Comment/Explanation: Present on Admission: [ x] Yes (Y) [ ] Clinically undeterminable (W) [ ] No (N) Please also document response in your Progress Notes and/or Discharge Summary and indicate if the condition was present on admission. GLORIAD
--- NOTE | 2016-12-25 13:07 | Consultation ---
History of Present Illness - Reason for Consult Consult date: 12/25/16 tremors - History of Present Illness full notes dictated patient with severe tremors and marked decreased LOC posssible increased VPA level plan w/u spke with the nurse ar Bedside exam rigid and with marked tremors... she is alert Past History Past Medical History: hyperlipidemia, pulmonary embolism, seizures, other ( Dementia) Past Surgical History: No surgical history Social history: single. denies: smoking, alcohol abuse, prescription drug abuse Family history: hypertension Medications and Allergies Allergies Allergy/AdvReac Type Severity Reaction Status Date / Time No Known Allergies Allergy Unverified 12/22/16 07:46 Home Medications Medication Instructions Recorded Confirmed Last Taken Type Acetaminophen 500 mg PO PRN PRN 12/22/16 12/22/16 Unknown History Aspirin 81 mg PO QAM 12/22/16 12/22/16 12/21/16 08:00 History 81 mg AtorvaSTATin 40 mg PO QHS 12/22/16 12/22/16 12/21/16 20:00 History 40 mg Valproic Acid 250 mg PO BID 12/22/16 12/22/16 12/21/16 17:00 History 250 mg levETIRAcetam 1,000 mg PO BID 12/22/16 12/22/16 12/21/16 20:00 History 1000 mg risperiDONE 1 mg PO BID 12/22/16 12/22/16 12/21/16 20:00 History 1 mg traZODone 100 mg PO QHS 12/22/16 12/22/16 12/21/16 20:00 History 100 mg Active Meds: Active Medications Acetaminophen (Tylenol) 650 mg PO Q4H PRN PRN Reason: Pain MILD(1-3)/Fever >100.5/SIMMONS Albuterol (Proventil) 2.5 mg IH Q4HRT PRN PRN Reason: Shortness Of Breath Aspirin (Halfprin Ec) 81 mg PO QDAY [facility] Last Admin: 12/25/16 09:46 Dose: 81 mg Atorvastatin Calcium (Lipitor) 40 mg PO QHS [facility] Last Admin: 12/24/16 22:30 Dose: 40 mg Bisacodyl (Dulcolax) 10 mg OH QDAY PRN PRN Reason: Constipation unrelieved by MOM Divalproex Sodium (Depakote Sprinkle) 125 mg PO BID [facility] Last Admin: 12/25/16 09:45 Dose: 125 mg Heparin Sodium (Porcine) (Heparin) 5,000 unit SUB-Q Q12HR CAROL Last Admin: 12/25/16 09:49 Dose: 5,000 unit Sodium Chloride (Nacl 0.45% 1000 Ml) 1,000 mls @ 75 mls/hr IV DIRECT CAROL Ceftriaxone Sodium (Rocephin/Ns 2 Gm/100 Ml) 2 gm in 100 mls @ 200 mls/hr IV Q24HR CAROL PRN Reason: Protocol Last Admin: 12/25/16 09:52 Dose: 200 mls/hr Levetiracetam (Keppra) 1,000 mg PO BID [facility] Last Admin: 12/25/16 09:47 Dose: 1,000 mg Magnesium Hydroxide (Milk Of Magnesia) 30 ml PO Q4H PRN PRN Reason: Constipation Ondansetron HCl (Zofran) 4 mg IV Q8H PRN PRN Reason: N/V unrelieved by Reglan Risperidone (Risperdal) 1 mg PO BID [facility] Last Admin: 12/25/16 09:46 Dose: 1 mg Trazodone HCl (Desyrel) 100 mg PO QHS [facility] Last Admin: 12/24/16 22:30 Dose: 100 mg Exam - Constitutional Vitals: Temp Pulse Resp BP Pulse Ox 98.0 F 47 L 16 117/59 97 12/25/16 11:00 12/25/16 11:00 12/25/16 11:00 12/25/16 11:00 12/24/16 19:52 Results - Labs CBC & Chem 7: 12/24/16 05:13 12/24/16 05:13
--- NOTE | 2016-12-25 13:34 | Discharge Summary ---
Providers - Providers Date of Admission: 12/22/16 14:35 Date of discharge: 12/25/16 Attending physician: JODY VALEDS 12/23/16 13:45 Occupational Therapy Evaluate and Treat [CONS] Urgent Comment: Reason For Exam: Tremor with inability to self feed 12/24/16 12:24 Consult to Physician [CONS] Routine Consulting Provider: JOE BLAKE Reason For Exam: valproic acid causing tremor? Place consult to:: Jaqui FAITH Notified:: JAQUI FAITH Phone number called:: [phone] Was contact made?: Yes If yes, spoke with:: ARASH Time called:: 13:27 Comment:: [facility] Hospitalization Condition: Stable Hospital course: Patient is a 81-year-old woman with history of dementia, acute NV, malnutrition , seizure disorder from [facility], first visit here presents with altered mental status. She was found to have UTI. -Acute encephalopathy: treat UTI -UTI: treated abx, follow urine culture=> normal skin pedro pablo -Suspect severe malnutrition: consult Lecturer In Computer [employer] -Severe Bradycardia: Cardiology is following -DVT prophylaxis: SCD and added subcutaneous heparin -Seizure disorder on Keppra and valproic acid, levels low -New-onset tremors and cogwheel rigidity, parkinsonism versus medication induced versus other 12/24/2016: Discussed with Simin james, stated power of admitted attorneys of patient was hospitalized at [place] and started on valproic acid and she developed a tremor with worsening confusion, her neurologist Dr. Cash (whom i tried to reach via google search-neivana did not know number), who patient saw before patient was hospitalized and there was no Parkinson at that time. This may be due to valproic acid, she's been on it for a couple months we'll wean off reduce the dose by half a consult neurology Disposition: Continue inpatient care, family/Simin declining SNF placement because after 20 days they will be responsible for the bill/stay at 100% and cost is over 100 hours per day which is too expensive per family Disposition: [id number]-06 HOME UNDER HOME HL Time spent for discharge: 32 minutes Core Measure Documentation - Palliative Care Palliative Care/ Comfort Measures: Not Applicable - Core Measures Any of the following diagnoses?: none - VTE Discharge Requirements Deep Vein Thrombosis/Pulmonary Embolism Present on Admission: No Has pt received <5 days of overlap therapy or INR<2.0: No Anticoagulant overlap therapy prescribed at discharge: No Contraindication No Overlap Therapy order at DC: Not Indicated Exam - Physical Exam Narrative exam: GEN: WDWN, NAD, AWAKE, ALERT, ORIENTATED 1 HEENT: NCAT, EOMI, PERRL, OP Clear NECK: supple, no adenopathy, no thyromegaly, no JVD CVS/HEART: RRR, NORMAL S1S2, NO JVD, pulses present bilaterally CHEST/LUNGS: CTA B, Symmetrical chest expansion, good air entry bilaterally GI/Abdomen: soft, NTND, good bowel sounds, no guarding or rebound /Bladder: no suprapubic tenderness, no CVA or paraspinal tenderness EXT/Skin: no c/c/e, no significant edema or obvious rash MSK: FROM x 4 Neuro: CN 2-12 grossly intact, no new focal deficits Psych: calm - Constitutional Vitals: Temp Pulse Resp BP Pulse Ox 98.0 F 47 L 16 117/59 97 12/25/16 11:00 12/25/16 11:00 12/25/16 11:00 12/25/16 11:00 12/24/16 19:52 Plan Activity: up only with assistance, fall precautions, other (no strenous activities) Diet: other (mechanical soft with Boost/Ensure shakes TID) Additional Instructions: No driving. See Neurologist as soon as possible, ? further weaning off depakote because of Parksonism like side effects. Follow up with: NICOLAS MAZA [Other] - 3-5 Days Prescriptions: Valproic Acid [Depakene] 125 mg PO BID #30 day
--- NOTE | 2016-12-25 14:40 | Cat Scan Report ---
CT scan of head without IV contrast: History: AMS. Findings: Ventricles are normal in size and midline in location. Mild volume loss. No acute ischemia, hemorrhage or mass. No extra axial fluid collection. Normal brainstem and cerebellum. Impression: No acute intracranial abnormality.
[2016-12-25 17:05] VITALS: BP 156/93
== END 2016-12-25 19:30 | disposition home health service (06) | DRG 70 ==
LOC: ED 07:21 → CC2 14:35
PROVIDERS: ADMIT Internal Medicine; ATTEND Internal Medicine
DX: G93.41 Metabolic encephalopathy (principal); E43 Unspecified severe protein-calorie malnutrition; N39.0 Urinary tract infection, site not specified; Z68.1 Body mass index [BMI] 19.9 or less, adult; I42.9 Cardiomyopathy, unspecified; G40.909 Epilepsy, unspecified, not intractable, without status epilepticus; F03.90 Unspecified dementia, unspecified severity, without behavioral disturbance, psychotic disturbance, mood disturbance, and anxiety; R00.1 Bradycardia, unspecified; G20 Parkinson's disease; T42.6X5A Adverse effect of other antiepileptic and sedative-hypnotic drugs, initial encounter; Z86.711 Personal history of pulmonary embolism; E86.0 Dehydration; E78.5 Hyperlipidemia, unspecified; Y92.89 Other specified places as the place of occurrence of the external cause; Z79.82 Long term (current) use of aspirin; Z79.899 Other long term (current) drug therapy; I25.2 Old myocardial infarction; Z82.49 Family history of ischemic heart disease and other diseases of the circulatory system
CPT/HCPCS: 36415; 70450; 71010; 80048; 80164; 80177; 81001; 82140; 84439; 84443; 84484; 85007; 85025; 85027; 85610; 85730; 87086; 93005; 93010; 96365; 96368; A9270-GY; G8987-GO; G8988-GO; J0696; J1644; J1953; J7030

== ENCOUNTER → 2016-12-26 | Emergency (ER) | payer MEDICARE ==
[~2016-12-26] MED LIST: ATIVAN ONE
== END ==
LOC: ED 17:57
DX: R50.9 Fever, unspecified (principal); Z53.21 Procedure and treatment not carried out due to patient leaving prior to being seen by health care provider
CPT/HCPCS: J2060